=== PATIENT | male | born 1965 | race Caucasian/White ===

== ENCOUNTER 2024-01-22 08:52 | Day surgery (SDC) | payer MEDICARE, OTHER ==
[2024-01-22] MEDS: ALPRAZolam 0.5 MG TAB PO STA (09:37)
[2024-01-22 10:47] VITALS: RESP 18; TEMP 98.3
--- NOTE | 2024-01-22 11:23 | US ---
ULTRASOUND GUIDED FNA RIGHT NECK BIOPSY: CLINICAL HISTORY: Right neck mass FINDINGS: The procedure was explained to the patient. The risks, complications, benefits and alternatives were discussed and any questions were answered. Informed consent was obtained. Patient was placed supin e on the ultrasound table and prepped and draped in the usual sterile fashion. Utilizing a 25 gauge needle, two passes were made into the right neck mass. Patient could not tolerate core biopsy and th erefore attempt was discontinued. Patient was stable throughout the procedure. Pathology is pending. All elements of maximal barrier technique were utilized. IMPRESSION: 1. Successful ultrasound guided FNA right neck mass biopsy.
[2024-01-22 11:47] VITALS: BP 139/88; PULSE 72
== END 2024-01-22 11:00 | disposition home or self-care (01) ==
LOC: RADPROMAIN 08:52
PROVIDERS: ATTEND Otolaryngology Plastic Surgery within the Head & Neck
DX: R22.1 Localized swelling, mass and lump, neck (principal)
CPT/HCPCS: 10005; 88173; 88305